=== PATIENT | male | born 1935 | race Caucasian/White ===

== ENCOUNTER 2018-04-26 08:39 | Day surgery (SDC) | payer OTHER ==
[2018-04-26] MEDS ORDERED: DIPRIVAN 20 ML VIAL IVP ONE (10:19)
[2018-04-26 16:12] VITALS: BP 132/56; TEMP 97.4
--- NOTE | 2018-04-27 12:56 | OP ---
INDICATIONS FOR PROCEDURE: 82-year-old gentleman presents for screening colon exam. He has a history of long redundant colon. He last had colonoscopy five years ago. He does have a remote history of colon polyps. MEDICATIONS: SEE ANESTHESIA NOTES. PROCEDURE: COLONOSCOPY. REPORT: The risks, benefits, alternatives and limitations were discussed in detail with the patient. Informed consent was obtained. After adequate sedation was achieved, a digital rectal exam revealed good tone, no masses. The colonoscope was introduced into the rectum and advanced under direct visual guidance to the cecum. The cecum was identified by the appendiceal orifice and IC valve. He has a long redundant colon requiring external pressure to reach the cecum. On advancing the scope, I encountered multiple puddles of liquid and semi solid stool. I washed and suctioned this off as best I could while I advanced the scope. I then withdrew the scope in a circumferential manner examining the mucosa quite carefully. I looked on the proximal and distal side of folds and flexures as best as possible. I was able to retroflex the scope in the right colon and left colon to increase visualization. The exam was limited secondary to the suboptimal prep. Large mass lesions would have been seen but polyps could have been obscured in different areas. I noted no abnormalities other than diverticulosis in the sigmoid colon. There were several large and small mouth diverticula present. The scope was retroflexed to look at the anal canal which was unremarkable. The patient tolerated the procedure well with stable vital signs and pulse oximetry throughout. IMPRESSION: 1. POOR PREP LIMITING THE EXTENT OF THIS EXAM. 2. LARGE MASS LESIONS HAVE BEEN EXCLUDED. 3. LONG REDUNDANT COLON. RECOMMENDATIONS: 1. Given his advanced age and health and his clinical status, I do not believe the benefit of reattempt at colonoscopy prep and colonoscopy would be beneficial in this gentleman. I suggest future colonoscopies on an as needed only basis. 2. High fiber diet. 3. Office visit as needed. ADDENDUM: I did talk to the patient and his family after the colonoscopy. We discussed the poor prep and how polyps could have been missed. We talked about pursuing another colonoscopy with additional prep; he declined to do so. He states he is happy to know that there are no large cancer lesions and he does not wish to pursue any additional colon exams. I think that is reasonable given his advanced age and health. CC: DR. JOSELYN APRK
== END 2018-04-26 11:55 | disposition home or self-care (01) ==
LOC: SURG 08:39
PROVIDERS: ATTEND Internal Medicine Gastroenterology
DX: Z86.010 Personal history of colon polyps (principal)
CPT/HCPCS: 00812; G0105

== ENCOUNTER 2020-06-01 18:11 | Inpatient (IN) ==
--- NOTE | 2020-06-01 18:33 | ED.PDOC ---
General <CRESENCIO LOPEZ DO - Last Filed: 06/01/20 19:30> ED Provider: Dr. CRESENCIO LOPEZ Chief Complaint: Respiratory Complaint Stated Complaint: Short of breath; recently tested pos for Covid. Denies hx COPD. State was informed by his pcp Dr Hopkins to come to ER if O2 stat dropped to 92 % Denies Fever or night sweats. Time Seen by Physician: 18:20 Mode of Arrival: Walk-In Information Source: Patient Exam Limitations: No limitations Primary Care Provider: DEDE HOPKINS Nursing and Triage Documentation Reviewed and Agree: Yes Does patient meet sepsis criteria?: No System Inflammatory Response Syndrome: Not Applicable Sepsis Protocol: For patient's 13 years and over: Temp is 96.8 and below OR 101 and greater Pulse >90 BPM Resp >20/minute Acutely Altered Mental Status Are patient's symptoms suggestive of a new infection, such as: -Pneumonia -Skin, Soft Tissue -Endocarditis -UTI -Bone, Joint Infection -Implantable Device -Acute Abdominal Infection -Wound Infection -Meningitis -Blood Stream Catheter Infection -Unknown <KYAW HUTCHINS - Last Filed: 06/01/20 22:01> Stated Complaint: sent in by PMD due to low home PO with recent dx covid Time Seen by Physician: 18:30 Mode of Arrival: Walk-In Information Source: Patient Exam Limitations: No limitations Primary Care Provider: Sandeep Referred to ED by: PCP Nursing and Triage Documentation Reviewed and Agree: Yes Does patient meet sepsis criteria?: No System Inflammatory Response Syndrome: Not Applicable Respiratory Complaint Exam <CRESENCIO LOPEZ DO - Last Filed: 06/01/20 19:30> Respiratory Complaint/Exam Onset/Duration: today Symptoms Are: Still present (no visibly dyspneic) Timing: Intermittent Initial Severity: Mild Current Severity: Mild Location: Chest Character: Reports Dry cough Aggravating: Reports Exertion Alleviating: Reports None Associated Signs and Symptoms: Reports Dyspnea Related History: Denies Similar episode Related Surgical History: Reports None Pulmonary Embolism Risk Factors: None Cardiac Risk Factors: Reports None Pseudomonas Risk Factors: Reports None Status Asthmaticus Risk Factors: Reports None Home Oxygen Use: No Recent Stress Test: No Recent Echo/LV Function: No Current Antibiotic Use: No Current Asthma Medication Use: No Respiratory Distress: None Inadequate Respiratory Effort: No Dysphagia Present: No Stridor Present: No JVD Present: No Retractions: Not Present Diminished Breath Sounds: No Sinus Tenderness: None Grunting Respirations: No Kussmaul Respirations: No Differential Diagnoses: Pneumonia and Other (COVID) Review of Systems <CRESENCIO LOPEZ DO - Last Filed: 06/01/20 19:30> Review Of Systems Constitutional: Reports Weakness Eyes: Reports No symptoms Ears, Nose, Mouth, Throat: Reports No symptoms Respiratory: Reports No symptoms Cardiac: Reports No symptoms GI: Reports No symptoms : Reports No symptoms Musculoskeletal: Reports No symptoms Skin: Reports No symptoms Neurological: Reports No symptoms Endocrine: Reports No symptoms Hematologic/Lymphatic: Reports No symptoms All Other Systems: Reviewed and Negative <KYAW HUTCHINS - Last Filed: 06/01/20 22:01> Review Of Systems Constitutional: Reports Chills (intermittant not new per pt ) Eyes: Reports No symptoms Ears, Nose, Mouth, Throat: Reports No symptoms (very [place], right ear best to use ) Respiratory: Reports No symptoms Cardiac: Reports Chest pain (occasional fleeting CP not new no radiation , nausea , dypsnea) GI: Reports No symptoms : Reports No symptoms Musculoskeletal: Reports Other (intermittantmuscle cramps not new ) Skin: Reports No symptoms Neurological: Reports No symptoms Endocrine: Reports No symptoms Hematologic/Lymphatic: Reports No symptoms All Other Systems: Reviewed and Negative Physical Exam <CRESENCIO LOPEZ DO - Last Filed: 06/01/20 19:30> Physical Exam Appearance: Reports Well-appearing and No pain distress Ill-appearing: Mild Pain Distress: None Eyes: Reports GER[place]IA, EOMI, Conjunctiva clear, Right pupil size (Equal) and Left pupil size ENT: Reports Ears normal, Nose normal and Oropharynx normal Neck: Supple Respiratory: Reports Airway patent, Breath sounds clear and Breath sounds diminished Cardiovascular: Reports RRR GI/: Reports Soft, Nontender, No masses, Bowel sounds normal and No Organomegaly Musculoskeletal: Reports Normal strength Skin: Reports Warm Neurological: Reports Sensation intact, Motor intact, Reflexes intact, Cranial nerves intact, Alert and Oriented Psychiatric: Reports Affect appropriate and Anxious <KYAW HUTCHINS - Last Filed: 06/01/20 22:01> Physical Exam Appearance: Reports Well-appearing Ill-appearing: Mild Pain Distress: None Eyes: Reports [place], EOMI and Conjunctiva clear ENT: Reports Ears normal and Nose normal Neck: Supple Respiratory: Reports Airway patent and Breath sounds equal Cardiovascular: Reports RRR and Pulses normal GI/: Reports Nontender Musculoskeletal: Reports Normal strength Skin: Reports Warm and Dry Neurological: Reports Sensation intact, Motor intact, Alert and Oriented Psychiatric: Reports Affect appropriate <KYAW HUTCHINS - Last Filed: 06/01/20 22:01> Radiology Interpretation Radiology Interpretation By: Radiologist Radiology Results: Positive Exam Interpreted: CXR Xray Comments: suggestive of covid <KYAW HUTCHINS - Last Filed: 06/01/20 22:01> Re-Evaluation Time of Re-Evaluation: 20:45 Status: Unchanged Vital Signs Stable: Yes Appearance: NAD Additional Comments: with RN present pt declines full code status - does not want resusitation if he develops cardiopulmonary arrest Physician Notification <CRESENCIO LOPEZ DO - Last Filed: 06/01/20 19:30> Case Discussed Physician Notified: Dr Hopkins- Advised of pts condition; Advises if needs admission -transfer Time of Notification: 18:44 Physician Notified: Dr Hutchins- accepted in transfer of care Time of Notification: 19:15 <KYAW HUTCHINS - Last Filed: 06/01/20 22:01> Case Discussed Admit To: SCU Comments: discussed with Dr Hopkins - orders received and written 2044 <KYAW HUTCHINS - Last Filed: 06/01/20 22:01> Critical Care Note Total Critical Care Time (mins): 20 Comments: review current literature / discuss with PMD / H&P / discuss code status / admit orders / Covid meds Course <CRESENCIO LOPEZ DO - Last Filed: 06/01/20 19:30> Course Hematology/Chemistry: 06/01/20 19:00 06/01/20 19:00 Orders, Labs, Meds: Lab Review 06/01/20 06/01/20 06/01/20 18:33 19:00 19:00 WBC 3.94 L RBC 4.73 Hgb 14.4 Hct 41.7 L MCV 88.2 MCH 30.4 MCHC 34.5 RDW Coeff of Анна 12.1 Plt Count 112 L Immature Gran % (Auto) 0.3 Neut % (Auto) 67.9 Lymph % (Auto) 18.8 [place] % (Auto) 12.4 H Eos % (Auto) 0.3 Baso % (Auto) 0.3 Neut # (Auto) 2.7 Lymph # (Auto) 0.7 [place] # (Auto) 0.5 Eos # (Auto) 0.0 Baso # (Auto) 0.0 Immature Gran # (Auto) 0.0 PT INR APTT Puncture Site Rr O2 Saturation 88.8 L ABG pH 7.51 H* ABG pCO2 35.0 ABG pO2 50.0 L* ABG HCO3 27.9 H ABG Total CO2 29.0 H ABG Base Excess 4.9 H Evan Test + FiO2 % 21.0 Sodium 131.2 L Potassium 3.68 Chloride 95.8 L Carbon Dioxide 27.8 Anion Gap 11.28 BUN 18.3 Creatinine 0.95 Estimated GFR (MDRD) 76.00 BUN/Creatinine Ratio 19.26 Glucose 139.1 H Lactic Acid Calcium 8.11 L Magnesium 2.26 Total Bilirubin 0.71 AST 58.9 ALT 26.1 Alkaline Phosphatase 88.5 Total Protein 6.94 Albumin 3.68 Globulin 3.26 Albumin/Globulin Ratio 1.12 Procalcitonin 06/01/20 06/01/20 06/01/20 19:00 19:00 19:00 WBC RBC Hgb Hct MCV MCH MCHC RDW Coeff of Анна Plt Count Immature Gran % (Auto) Neut % (Auto) Lymph % (Auto) [place] % (Auto) Eos % (Auto) Baso % (Auto) Neut # (Auto) Lymph # (Auto) [place] # (Auto) Eos # (Auto) Baso # (Auto) Immature Gran # (Auto) PT 9.6 INR 0.98 APTT 39.8 Puncture Site O2 Saturation ABG pH ABG pCO2 ABG pO2 ABG HCO3 ABG Total CO2 ABG Base Excess Evan Test FiO2 % Sodium Potassium Chloride Carbon Dioxide Anion Gap BUN Creatinine Estimated GFR (MDRD) BUN/Creatinine Ratio Glucose Lactic Acid 1.25 Calcium Magnesium Total Bilirubin AST ALT Alkaline Phosphatase Total Protein Albumin Globulin Albumin/Globulin Ratio Procalcitonin < 0.05 Orders Category Date Time Status ABG DRAW REQUEST Stat CARDIO 06/01/20 18:33 Completed METERED DOSE INHALATION Routine CARDIO 06/01/20 18:37 Completed ABG Stat LAB 06/01/20 18:33 Completed BLOOD CULTURE (ED ONLY) Stat LAB 06/01/20 19:00 Received CBC W/ AUTO DIFF Stat LAB 06/01/20 19:00 Completed CMP [COMPREHENSIVE METABOLIC PANEL] Stat LAB 06/01/20 19:00 Completed LACTIC ACID Stat LAB 06/01/20 19:00 Completed MAGNESIUM Stat LAB 06/01/20 19:00 Completed PARTIAL THROMBOPLASTIN TIME Stat LAB 06/01/20 19:00 Completed PROCALCITONIN Stat LAB 06/01/20 19:00 Completed PT WITH INR Stat LAB 06/01/20 19:00 Completed SPUTUM CULTURE Stat LAB 06/01/20 18:37 Uncollected Albuterol Inhaler(with Spacer) [Ventolin Hfa (Per Puff- MEDS 06/01/20 18:37 Discontinued with Spacer)] 2 puff IH ONCE STA CHEST, 1V AP ONLY Stat RADS 06/01/20 18:33 Completed Medications Generic Name Dose Route Start Last Admin Trade Name Freq PRN Reason Stop Dose Admin Dexamethasone Sodium Phosphate 6 mg 06/01/20 21:30 Dexamethasone Sod Phos 10 Mg/Ml Inj IVP DAILY [facility] Doxycycline Hyclate 100 mg 06/01/20 21:30 Doxycycline Hyclate 100 Mg Capsule PO 06/04/20 21:29 Q12HR [facility] Enoxaparin Sodium 40 mg 06/01/20 21:30 Enoxaparin Sodium 40 Mg/0.4 Ml Syr SUBCUT DAILY [facility] REMDESIVIR SOLUTION 200 mg/ 250 mls @ 125 mls/hr 06/01/20 21:12 Sodium Chloride IV 06/01/20 23:11 ONCE ONE CEFTRIAXONE/D5W 1 GM PREMIX 1 gm in 50 mls @ 75 mls/hr 06/01/20 21:12 Rocephin 1 Gm/50 Ml D5w IV 06/01/20 21:51 ONCE STA Ipratropium Union 2 puff 06/02/20 00:00 Ipratropium [place] 12.9 Gm Hfa Inhaler Per Puff With Spacer IH RTQ6H ZOHAIB Discontinued Medications Generic Name Dose Route Start Last Admin Trade Name Freq PRN Reason Stop Dose Admin Albuterol Sulfate 2 puff 06/01/20 18:37 06/01/20 18:57 Albuterol Sulfate (Ventolin Hfa) 18 Gm 1 Puff With Spacer IH 06/01/20 18:38 2 puff ONCE STA Administration Vital Signs: Temp Pulse Resp BP Pulse Ox 06/01/20 18:26 99.3 F 80 20 124/60 90 L <KYAW HUTCHINS - Last Filed: 06/01/20 22:01> Course Orders, Labs, Meds: Lab Review 06/01/20 06/01/20 06/01/20 18:33 19:00 19:00 WBC 3.94 L RBC 4.73 Hgb 14.4 Hct 41.7 L MCV 88.2 MCH 30.4 MCHC 34.5 RDW Coeff of Анна 12.1 Plt Count 112 L Immature Gran % (Auto) 0.3 Neut % (Auto) 67.9 Lymph % (Auto) 18.8 [place] % (Auto) 12.4 H Eos % (Auto) 0.3 Baso % (Auto) 0.3 Neut # (Auto) 2.7 Lymph # (Auto) 0.7 [place] # (Auto) 0.5 Eos # (Auto) 0.0 Baso # (Auto) 0.0 Immature Gran # (Auto) 0.0 PT INR APTT Puncture Site Rr O2 Saturation 88.8 L ABG pH 7.51 H* ABG pCO2 35.0 ABG pO2 50.0 L* ABG HCO3 27.9 H ABG Total CO2 29.0 H ABG Base Excess 4.9 H Evan Test + FiO2 % 21.0 Sodium 131.2 L Potassium 3.68 Chloride 95.8 L Carbon Dioxide 27.8 Anion Gap 11.28 BUN 18.3 Creatinine 0.95 Estimated GFR (MDRD) 76.00 BUN/Creatinine Ratio 19.26 Glucose 139.1 H Lactic Acid Calcium 8.11 L Magnesium 2.26 Total Bilirubin 0.71 AST 58.9 ALT 26.1 Alkaline Phosphatase 88.5 Total Protein 6.94 Albumin 3.68 Globulin 3.26 Albumin/Globulin Ratio 1.12 Procalcitonin 06/01/20 06/01/20 06/01/20 19:00 19:00 19:00 WBC RBC Hgb Hct MCV MCH MCHC RDW Coeff of Анна Plt Count Immature Gran % (Auto) Neut % (Auto) Lymph % (Auto) [place] % (Auto) Eos % (Auto) Baso % (Auto) Neut # (Auto) Lymph # (Auto) [place] # (Auto) Eos # (Auto) Baso # (Auto) Immature Gran # (Auto) PT 9.6 INR 0.98 APTT 39.8 Puncture Site O2 Saturation ABG pH ABG pCO2 ABG pO2 ABG HCO3 ABG Total CO2 ABG Base Excess Evan Test FiO2 % Sodium Potassium Chloride Carbon Dioxide Anion Gap BUN Creatinine Estimated GFR (MDRD) BUN/Creatinine Ratio Glucose Lactic Acid 1.25 Calcium Magnesium Total Bilirubin AST ALT Alkaline Phosphatase Total Protein Albumin Globulin Albumin/Globulin Ratio Procalcitonin < 0.05 Orders Category Date Time Status ABG DRAW REQUEST Stat CARDIO 06/01/20 18:33 Completed METERED DOSE INHALATION Routine CARDIO 06/01/20 18:37 Completed ABG Stat LAB 06/01/20 18:33 Completed BLOOD CULTURE (ED ONLY) Stat LAB 06/01/20 19:00 Received CBC W/ AUTO DIFF Stat LAB 06/01/20 19:00 Completed CMP [COMPREHENSIVE METABOLIC PANEL] Stat LAB 06/01/20 19:00 Completed LACTIC ACID Stat LAB 06/01/20 19:00 Completed MAGNESIUM Stat LAB 06/01/20 19:00 Completed PARTIAL THROMBOPLASTIN TIME Stat LAB 06/01/20 19:00 Completed PROCALCITONIN Stat LAB 06/01/20 19:00 Completed PT WITH INR Stat LAB 06/01/20 19:00 Completed SPUTUM CULTURE Stat LAB 06/01/20 18:37 Uncollected Albuterol Inhaler(with Spacer) [Ventolin Hfa (Per Puff- MEDS 06/01/20 18:37 Discontinued with Spacer)] 2 puff IH ONCE STA CHEST, 1V AP ONLY Stat RADS 06/01/20 18:33 Completed Medications Generic Name Dose Route Start Last Admin Trade Name Freq PRN Reason Stop Dose Admin Dexamethasone Sodium Phosphate 6 mg 06/01/20 21:30 Dexamethasone Sod Phos 10 Mg/Ml Inj IVP DAILY [facility] Doxycycline Hyclate 100 mg 06/01/20 21:30 Doxycycline Hyclate 100 Mg Capsule PO 06/04/20 21:29 Q12HR [facility] Enoxaparin Sodium 40 mg 06/01/20 21:30 Enoxaparin Sodium 40 Mg/0.4 Ml Syr SUBCUT DAILY ZOHAIB REMDESIVIR SOLUTION 200 mg/ 250 mls @ 125 mls/hr 06/01/20 21:12 Sodium Chloride IV 06/01/20 23:11 ONCE ONE CEFTRIAXONE/D5W 1 GM PREMIX 1 gm in 50 mls @ 75 mls/hr 06/01/20 21:12 Rocephin 1 Gm/50 Ml D5w IV 06/01/20 21:51 ONCE STA Ipratropium Union 2 puff 06/02/20 00:00 Ipratropium [place] 12.9 Gm Hfa Inhaler Per Puff With Spacer IH RTQ6H ZOHAIB Discontinued Medications Generic Name Dose Route Start Last Admin Trade Name Freq PRN Reason Stop Dose Admin Albuterol Sulfate 2 puff 06/01/20 18:37 06/01/20 18:57 Albuterol Sulfate (Ventolin Hfa) 18 Gm 1 Puff With Spacer IH 06/01/20 18:38 2 puff ONCE STA Administration Vital Signs: Temp Pulse Resp BP Pulse Ox 06/01/20 18:26 99.3 F 80 20 124/60 90 L Discharge Plan Discharge Patient Disposition: ADMITTED INPATIENT Discharge Problem: Pneumonia due to 2019 novel coronavirus ED Provider: KYAW HUTCHINS Condition: Stable <CRESENCIO LOPEZ DO - Last Filed: 06/01/20 19:30> Physician Progress Note: [] <KYAW HUTCHINS - Last Filed: 06/01/20 22:01> Physician Progress Note: patient understands plan and agrees with admission for oxygen supplementation, IV Meds ,
[2020-06-01] MEDS ORDERED: VENTOLIN HFA (PER PUFF-WITH SPACER) IH STA (18:37)
[2020-06-01 18:54] LABS: ABG PH 7.51 (7.35-7.45)
[2020-06-01 18:55] LABS: ABG BASE EXCESS 4.9 (-2.0-2.0); ABG HCO3 27.9 (22.0-26.0); ABG OXYGEN SATURATION 88.8 % (95-100)
[2020-06-01 19:15] LABS: BASOPHILS % (AUTO) 0.3 % (0.0-3.0); EOSINOPHILS % (AUTO) 0.3 % (0.0-7.0); HEMATOCRIT 41.7 % (42.0-52.0); HEMOGLOBIN 14.4 g/dl (14.0-18.0); IMMATURE GRANULOCYTE % (AUTO) 0.3 % (0.0-5.0); LYMPHOCYTES # (AUTO) 0.7 K/uL (0.60-3.4); LYMPHOCYTES % (AUTO) 18.8 (10.0-50.0); MEAN CORPUSCULAR HEMOGLOBIN 30.4 pg (27.0-31.0); MEAN CORPUSCULAR HGB CONC 34.5 (31.8-35.4); MEAN CORPUSCULAR VOLUME 88.2 fl (80.0-94.0); MONOCYTES # (AUTO) 0.5 K/uL (0.4-2.0); MONOCYTES % (AUTO) 12.4 (0-10); NEUTROPHILS # (AUTO) 2.7 K/ul (2.0-6.9); NEUTROPHILS % (AUTO) 67.9 % (42.2-75.2); PLATELET COUNT 112 10^3/uL (140-440); RDW COEFFICIENT OF VARIATION 12.1 % (11.6-14.8); RED BLOOD COUNT 4.73 10^6/ul (4.70-6.10); WHITE BLOOD COUNT 3.94 K/ul (4.2-10.2)
[2020-06-01 19:26] LABS: ALANINE AMINOTRANSFERASE 26.1 U/L (0-50); ALBUMIN 3.68 g/dL (3.5-5.0); ALKALINE PHOSPHATASE 88.5 U/L (56-119); ASPARTATE AMINO TRANSFERASE 58.9 U/L (17-59); BILIRUBIN,TOTAL 0.71 mg/dL (0.2-1.3); BLOOD UREA NITROGEN 18.3 mg/dL (9-20); CALCIUM 8.11 mg/dL (8.4-10.2); CARBON DIOXIDE 27.8 mmol/L (22-30.0); CHLORIDE 95.8 mmol/L (98-107); CREATININE 0.95 mg/dL (0.60-1.10); GLUCOSE 139.1 mg/dL (74-106); MAGNESIUM 2.26 mg/dL (1.6-2.3); POTASSIUM 3.68 mmol/L (3.5-5.1); SODIUM 131.2 mmol/L (134.5-145); TOTAL PROTEIN 6.94 g/dL (6.3-8.2)
--- NOTE | 2020-06-01 19:30 | DI ---
EXAM: One-view chest HISTORY: Shortness of breath, COVID-19 TECHNIQUE: Single frontal view the chest was obtained. FINDINGS: The heart is normal size. Ground-glass opacities are suspected in the right perihilar hiral g and within the left perihilar lung. The pulmonary vasculature appears normal. There is no consoli dation. The costophrenic angles are sharp. IMPRESSION: Bilateral ground-glass opacities are suspected compatible with the patients history of C OVID-19 infection.
[2020-06-01 19:32] LABS: PARTIAL THROMBOPLASTIN TIME 39.8 SEC (23.9-40.0); PROTHROMBIN TIME 9.6 SEC (9.3-11.0)
[2020-06-01] MEDS ORDERED: ROCEPHIN 1 GM/50 ML D5W 1 GM/50 ML BAG IV STA (21:12)
[2020-06-01] MEDS ORDERED: REMDESIVIR 200 MG in SODIUM CHLORIDE 210 ML IV ONE (21:12)
[2020-06-01] MEDS ORDERED: INDOCIN PO PRN (22:13)
[2020-06-01 22:20] VITALS: BMI 25.1
[2020-06-01] MEDS: DECADRON IVP SCH (23:08)
[2020-06-01] MEDS: SYMBICORT 160-4.5 MCG INHALER IH SCH (23:08)
[2020-06-01] MEDS: DOXYCYCLINE HYCLATE PO SCH (23:08)
[2020-06-01] MEDS: LOVENOX SUBCUT SCH (23:09)
[2020-06-01] MEDS: ATROVENT HFA INHALER (PER PUFF-WITH SPACER) IH SCH (23:11)
[2020-06-01] MEDS: VENTOLIN HFA (PER PUFF-WITH SPACER) IH SCH (23:11)
[2020-06-02] MEDS ORDERED: VENTOLIN HFA (PER PUFF-WITH SPACER) IH SCH
[2020-06-02] MEDS: VENTOLIN HFA (PER PUFF-WITH SPACER) IH SCH ×4 (04:55→23:23)
[2020-06-02] MEDS: ATROVENT HFA INHALER (PER PUFF-WITH SPACER) IH SCH ×4 (04:55→23:23)
[2020-06-02 05:04] LABS: HEMATOCRIT 43.1 % (42.0-52.0); HEMOGLOBIN 14.9 g/dl (14.0-18.0); MEAN CORPUSCULAR HEMOGLOBIN 30.8 pg (27.0-31.0); MEAN CORPUSCULAR HGB CONC 34.6 (31.8-35.4); MEAN CORPUSCULAR VOLUME 89.2 fl (80.0-94.0); PLATELET COUNT 109 10^3/uL (140-440); RDW COEFFICIENT OF VARIATION 12.3 % (11.6-14.8); RED BLOOD COUNT 4.83 10^6/ul (4.70-6.10); WHITE BLOOD COUNT 4.06 K/ul (4.2-10.2)
[2020-06-02 05:17] LABS: ANISOCYTOSIS NOT PRESENT (NOT PRESENT)
[2020-06-02 05:23] LABS: ALANINE AMINOTRANSFERASE 25.7 U/L (0-50); ALBUMIN 3.69 g/dL (3.5-5.0); ALKALINE PHOSPHATASE 88.9 U/L (56-119); ASPARTATE AMINO TRANSFERASE 53.1 U/L (17-59); BILIRUBIN,TOTAL 0.63 mg/dL (0.2-1.3); BLOOD UREA NITROGEN 15.1 mg/dL (9-20); CALCIUM 8.27 mg/dL (8.4-10.2); CARBON DIOXIDE 31.1 mmol/L (22-30.0); CHLORIDE 96.5 mmol/L (98-107); CREATININE 0.99 mg/dL (0.60-1.10); GLUCOSE 158.3 mg/dL (74-106); POTASSIUM 3.88 mmol/L (3.5-5.1); TOTAL PROTEIN 7.02 g/dL (6.3-8.2)
[2020-06-02] MEDS ORDERED: PROAIR HFA (SINGLE PATIENT USE) IH SCH (06:00)
[2020-06-02] MEDS: PROSCAR PO SCH (08:32)
[2020-06-02] MEDS: DOXYCYCLINE HYCLATE PO SCH ×2 (08:32→20:34)
[2020-06-02] MEDS: LOVENOX SUBCUT SCH (08:33)
[2020-06-02] MEDS: DECADRON IVP SCH (08:34)
[2020-06-02] MEDS: SYMBICORT 160-4.5 MCG INHALER IH SCH ×2 (08:38→20:35)
[2020-06-02] MEDS ORDERED: DIPHENHYDRAMINE ACETAMINOPHEN PO SCH (09:00)
[2020-06-02] MEDS ORDERED: REMDESIVIR 200 MG in SODIUM CHLORIDE 210 ML IV ONE (09:00)
[2020-06-02] MEDS: VITAMIN D PO SCH (13:48)
[2020-06-02] MEDS: PRAVACHOL PO SCH (20:33)
[2020-06-02] MEDS: BENADRYL PO SCH (20:34)
[2020-06-02] MEDS: TYLENOL PO SCH (20:34)
[2020-06-02] MEDS: ROCEPHIN 1 GM/50 ML D5W 1 GM/50 ML BAG IV SCH (20:34)
[2020-06-03] MEDS: ATROVENT HFA INHALER (PER PUFF-WITH SPACER) IH SCH ×4 (05:10→23:05)
[2020-06-03] MEDS: VENTOLIN HFA (PER PUFF-WITH SPACER) IH SCH ×4 (05:10→23:05)
[2020-06-03 06:15] LABS: BASOPHILS % (AUTO) 0.2 % (0.0-3.0); HEMATOCRIT 40.3 % (42.0-52.0); HEMOGLOBIN 13.8 g/dl (14.0-18.0); IMMATURE GRANULOCYTE % (AUTO) 0.4 % (0.0-5.0); LYMPHOCYTES # (AUTO) 0.9 K/uL (0.60-3.4); LYMPHOCYTES % (AUTO) 15.3 (10.0-50.0); MEAN CORPUSCULAR HEMOGLOBIN 30.7 pg (27.0-31.0); MEAN CORPUSCULAR HGB CONC 34.2 (31.8-35.4); MEAN CORPUSCULAR VOLUME 89.8 fl (80.0-94.0); MONOCYTES # (AUTO) 0.6 K/uL (0.4-2.0); MONOCYTES % (AUTO) 10.5 (0-10); NEUTROPHILS # (AUTO) 4.2 K/ul (2.0-6.9); NEUTROPHILS % (AUTO) 73.6 % (42.2-75.2); PLATELET COUNT 137 10^3/uL (140-440); RDW COEFFICIENT OF VARIATION 12.2 % (11.6-14.8); RED BLOOD COUNT 4.49 10^6/ul (4.70-6.10); WHITE BLOOD COUNT 5.63 K/ul (4.2-10.2)
[2020-06-03 06:24] LABS: PROTHROMBIN TIME 9.5 SEC (9.3-11.0)
[2020-06-03 06:25] LABS: ALANINE AMINOTRANSFERASE 23.6 U/L (0-50); ALBUMIN 3.31 g/dL (3.5-5.0); ALKALINE PHOSPHATASE 84.2 U/L (56-119); ASPARTATE AMINO TRANSFERASE 44.5 U/L (17-59); BILIRUBIN,TOTAL 0.44 mg/dL (0.2-1.3); BLOOD UREA NITROGEN 23.6 mg/dL (9-20); CALCIUM 8.67 mg/dL (8.4-10.2); CARBON DIOXIDE 28.7 mmol/L (22-30.0); CHLORIDE 102.4 mmol/L (98-107); CREATININE 0.92 mg/dL (0.60-1.10); GLUCOSE 123.9 mg/dL (74-106); POTASSIUM 3.98 mmol/L (3.5-5.1); SODIUM 137.4 mmol/L (134.5-145); TOTAL PROTEIN 6.45 g/dL (6.3-8.2)
--- NOTE | 2020-06-03 09:03 | PCM.PROG ---
Attending Provider: ATTENDING PROVIDER: Dr. DEDE ALVES This patient is seen with Luz Maria Solis, Nurse Practitioner. DATE OF SERVICE: 06/03/20 SUBJECTIVE: This 84 year old /WHITE M was hospitalized 06/01/20. The patient is resting comfortably. Sating low 90s with oxygen. Eating moderately well. Kidney functions are stable. resting comfortably. REVIEW OF SYSTEMS: CONSTITUTIONAL: No night sweats. No fatigue, malaise, lethargy. No fever or chills. Weakness. HEENT: Eyes: No visual changes. No eye pain. No eye discharge. ENT: No runny nose. No epistaxis. No sinus pain. No odynophagia. No congestion. RESPIRATORY: Cough, no congestion. No hemoptysis. Shortness of breath. CARDIOVASCULAR: No angina symptoms. No CHF symptoms. No atypical chest pain for CAD. No palpitations. No orthopnea.. GASTROINTESTINAL: No abdominal pain. No nausea or vomiting. No diarrhea or c onstipation. No hematemesis. No hematochezia. GENITOURINARY: No urgency. No frequency. No dysuria. No hematuria. No obstructive symptoms. No discharge. No pain. No significant abnormal bleeding. MUSCULOSKELETAL: No musculoskeletal pain; no joint swelling. NEUROLOGICAL: Awake, alert, oriented to time, place and person. No headache. No neck pain. No syncope. No seizures. No dizziness. PSYCHIATRIC: Not anxious. No depression. No suicidal thoughts. No homicidal thoughts. SKIN: No rash. No lesions. No wounds. ENDOCRINE: No unexplained weight loss. No weight gain. HEMATOLOGIC/LYMPHATIC: No anemia. No purpura. No petechiae. No prolonged or excessive bleeding. No palpable lymph nodes. PHYSICAL EXAMINATION: GENERAL: The patient is awake, alert and oriented, lying in bed in no distress. VITAL SIGNS: Temperature 98.1 F, Pulse 79, Respiratory Rate 20, BP 135/74, Pulse Ox 91% HEENT: Head normocephalic, atraumatic. Eyes: Extraocular muscles are intact. Pupils are equal, round and reactive to light and accommodation. Ears: No lesions. Nose appeared normal. Throat: No exudate or erythema. NECK: Supple. No JVD, no carotid bruit. No lymphadenopathy or thyromegaly. LUNGS: Diminished breath sounds. Clear to auscultation. Percussion note normal. Chest symmetrical. HEART: S1, S2, no S3. No murmurs. No cyanosis or clubbing. No ascites. Pulses: Dorsalis pedis and posterior tibial pulses +1 to +2 both sides. ABDOMEN: Soft. Non-tender. Bowel sounds active. No CVA tenderness. No mass felt. EXTREMITIES: No edema. Full range of motion of all extremities, equal. NEUROLOGIC: No focal deficit. Cranial nerves II through XII are grossly intact. No headache, no double vision or headache. SKIN: Not dry. Intact. Turgor-normal. LYMPHATIC: No palpable lymph nodes/no lymphedema. MUSCULOSKELETAL: Normal joints with no swelling. Muscle tone is normal. LAB REVIEW: 06/03/20 06:00 06/03/20 06:00 06/03/20 06:00: Sodium 137.4, Potassium 3.98, Chloride 102.4, Carbon Dioxide 28.7, Anion Gap 10.28, BUN 23.6 H, Creatinine 0.92, Estimated GFR (MDRD) 78.00, BUN/Creatinine Ratio 25.65, Glucose 123.9 H, Calcium 8.67, Total Bilirubin 0.44, AST 44.5, ALT 23.6, Alkaline Phosphatase 84.2, Total Protein 6.45, Albumin 3.31 L, Globulin 3.14, Albumin/Globulin Ratio 1.05 06/03/20 06:00: WBC 5.63, RBC 4.49 L, Hgb 13.8 L, Hct 40.3 L, MCV 89.8, MCH 30.7, MCHC 34.2, RDW Coeff of Анна 12.2, Plt Count 137 L, Immature Gran % (Auto) 0.4, Neut % (Auto) 73.6, Lymph % (Auto) 15.3, [place] % (Auto) 10.5 H, Eos % (Auto) 0.0, Baso % (Auto) 0.2, Neut # (Auto) 4.2, Lymph # (Auto) 0.9, [place] # (Auto) 0.6, Eos # (Auto) 0.0, Baso # (Auto) 0.0, Immature Gran # (Auto) 0.0 06/03/20 05:07: PT 9.5, INR 0.97 ASSESSMENT: Please see below. 1. Acute respiratory failure, improved 2. Bilateral pneumonia 3. COVID 19 4. Shortness of breath acute PLAN: 1. Continue IV antibiotics and steroids Plan and coordination of the patient's care discussed in the presence of Sole Ruffer and nurse. SCRIBED BY: Edilson GOMEZ scribed while in presence of service performed by Dr. Alves/Luz Maria Solis APRN on 06/03/20 ([id number])
[2020-06-03] MEDS: DECADRON IVP SCH (09:33)
[2020-06-03] MEDS: VITAMIN D PO SCH (09:55)
[2020-06-03] MEDS: LOVENOX SUBCUT SCH (09:55)
[2020-06-03] MEDS: PROSCAR PO SCH (09:59)
[2020-06-03] MEDS: ZINC-220 PO SCH (09:59)
[2020-06-03] MEDS: REMDESIVIR 100 MG in SODIUM CHLORIDE 230 ML IV SCH (09:59)
[2020-06-03] MEDS: DOXYCYCLINE HYCLATE PO SCH ×2 (10:00→21:30)
[2020-06-03] MEDS: SYMBICORT 160-4.5 MCG INHALER IH SCH ×2 (10:00→21:30)
--- NOTE | 2020-06-03 11:23 | PN ---
DATE OF SERVICE: 06/01/20 - ADMIT NOTE SUBJECTIVE: 84-year-old white male positive for Covid-19 came to the emergency room after I instructed him to check pulse oximetry and if oximetry is 90% or less to come to the emergency room. The patient's oximetry at home was 88% so his girlfriend decided to bring him to the emergency room. He had been having fever 101 at home and mild shortness of breath. Further checkup in the emergency room revealed that he had bilateral ground glass appearance with pneumonia. P02 was 50, pc02 35. The patient's oxygen saturation as 94 to 95%. Oxygen saturation in the Emergency Room was 89 to 90% on room air. He will be hospitalized for Covid-19 pneumonia. Continue oxygen, IV Remdesivir, Decadron, Rocephin and Doxycycline. Continue the rest of the medications. The patient's condition is stable now. According to the ER staff, nurse Dow, who is an RN as well as the ER doctor, the patient didn't want any CPR for cardiopulmonary arrest on his own he indicated to the ER nurse and also to the ER doctor. CONDITION: STABLE TIME SPENT: More than 30 minutes. Plan and coordination of the patient's care discussed in the presence of nurseAlice PARK
--- NOTE | 2020-06-03 11:30 | PN ---
DATE OF SERVICE: 06/02/20 SUBJECTIVE: 84-year-old white male hospitalized with Covid-19 pneumonia with acute respiratory failure. The patient says he is feeling a lot better, breathing better. REVIEW OF SYSTEMS: CONSTITUTIONAL: No night sweats. No fatigue, malaise, lethargy. No fever or chills. HEENT: Eyes: No visual changes. No eye pain. No eye discharge. ENT: No runny nose. No epistaxis. No sinus pain. No sore throat. No odynophagia. No congestion. RESPIRATORY: No cough, no congestion. No hemoptysis. No shortness of breath. CARDIOVASCULAR: No angina symptoms. No CHF symptoms. No atypical chest pain for CAD. No palpitations. No PND. No orthopnea. GASTROINTESTINAL: No abdominal pain. No nausea or vomiting. No diarrhea or constipation. No hematemesis. No hematochezia. GENITOURINARY: No urgency. No frequency. No dysuria. No hematuria. No obstructive symptoms. No discharge. No pain. No significant abnormal bleeding. MUSCULOSKELETAL: No musculoskeletal pain; no joint swelling. NEUROLOGICAL: No headache. No neck pain. No syncope. No seizures. No dizziness. PSYCHIATRIC: Not anxious. No depression. No suicidal thoughts. No homicidal thoughts. SKIN: No rash. No lesions. No wounds. ENDOCRINE: No unexplained weight loss. No weight gain. HEMATOLOGIC/LYMPHATIC: No anemia. No purpura. No petechiae. No prolonged or excessive bleeding. No palpable lymph nodes. PHYSICAL EXAMINATION: VITAL SIGNS: Temperature 98.2, pulse 76, respiratory rate 16, blood pressure 140/70, pulse ox 92% on 2L. HEENT: Head normocephalic, atraumatic. Eyes: Extraocular muscles are intact. Pupils are equal, round and reactive to light and accommodation. Ears: No lesions. Nose appeared normal. Throat: No exudate or erythema. NECK: Supple. No JVD, no carotid bruit. No lymphadenopathy or thyromegaly. LUNGS: Decreased breath sounds. Bilateral crepitations, dry. Percussion note normal. Chest symmetrical. HEART: S1, S2, no S3. No murmurs. No cyanosis or clubbing. No ascites. Pulses: Dorsalis pedis and posterior tibial pulses +1 to +2 bilaterally. ABDOMEN: Soft. Nontender. Bowel sounds active. No CVA tenderness. No mass felt. EXTREMITIES: No edema. Full range of motion of all extremities, equal. NEUROLOGIC: No focal deficit. Cranial nerves II through XII are grossly intact. No headache, no double vision or headache. SKIN: Not dry. Intact. Turgor - normal. LYMPHATIC: No palpable lymph nodes/no lymphedema. MUSCULOSKELETAL: Normal joints with no swelling. Muscle tone is normal. LABS: Hemoglobin 14, hematocrit 43, WBC 4,000, normal differential. Creatinine 0.9, BUN 15, potassium 3.8. ASSESSMENT: 1. Acute respiratory failure with Covid-19 pneumonia. 2. Chronic lung disease. 3. Gouty arthritis. 4. BPH. PLAN: 1. Give Remdesivir 100 daily for four days. 200 mg was given yesterday. 100 mg will be given today. 2. Continue Dexamethasone. 3. Will give Pravachol 40 mg p.o. daily along with Vitamin D3, Symbicort two puffs q.a.m., Pepcid 20 mg twice a day. 4. Continue Rocephin and Doxycycline. 5. Will start Zinc. 6. Monitor oximetry. CONDITION: Stable, improving. The patient was Covid positive. TIME SPENT: More than 30 minutes. Plan and coordination of the patient's care discussed in the presence of nurse. XAVIER
[2020-06-03] MEDS: PEPCID PO SCH ×2 (16:17→16:19)
[2020-06-03] MEDS: ROCEPHIN 1 GM/50 ML D5W 1 GM/50 ML BAG IV SCH (21:29)
[2020-06-03] MEDS: BENADRYL PO SCH (21:30)
[2020-06-03] MEDS: TYLENOL PO SCH (21:30)
[2020-06-03] MEDS: PRAVACHOL PO SCH (21:30)
[2020-06-04] MEDS: VENTOLIN HFA (PER PUFF-WITH SPACER) IH SCH ×4 (04:28→23:10)
[2020-06-04] MEDS: ATROVENT HFA INHALER (PER PUFF-WITH SPACER) IH SCH ×4 (04:28→23:10)
[2020-06-04] MEDS: PEPCID PO SCH ×2 (05:30→17:34)
[2020-06-04 05:57] LABS: PROTHROMBIN TIME 10.1 SEC (9.3-11.0)
[2020-06-04 05:59] LABS: ALANINE AMINOTRANSFERASE 35.6 U/L (0-50); ALBUMIN 3.43 g/dL (3.5-5.0); ASPARTATE AMINO TRANSFERASE 57.3 U/L (17-59); BILIRUBIN,TOTAL 0.51 mg/dL (0.2-1.3); BLOOD UREA NITROGEN 21.9 mg/dL (9-20); CALCIUM 8.75 mg/dL (8.4-10.2); CARBON DIOXIDE 26.9 mmol/L (22-30.0); CHLORIDE 102.9 mmol/L (98-107); CREATININE 0.91 mg/dL (0.60-1.10); GLUCOSE 119.5 mg/dL (74-106); POTASSIUM 4.11 mmol/L (3.5-5.1); SODIUM 136.7 mmol/L (134.5-145); TOTAL PROTEIN 6.66 g/dL (6.3-8.2)
[2020-06-04 07:25] LABS: HEMATOCRIT 42.6 % (42.0-52.0); HEMOGLOBIN 14.7 g/dl (14.0-18.0); IMMATURE GRANULOCYTE % (AUTO) 0.5 % (0.0-5.0); LYMPHOCYTES # (AUTO) 0.8 K/uL (0.60-3.4); LYMPHOCYTES % (AUTO) 13.9 (10.0-50.0); MEAN CORPUSCULAR HEMOGLOBIN 30.9 pg (27.0-31.0); MEAN CORPUSCULAR HGB CONC 34.5 (31.8-35.4); MEAN CORPUSCULAR VOLUME 89.5 fl (80.0-94.0); MONOCYTES # (AUTO) 0.6 K/uL (0.4-2.0); MONOCYTES % (AUTO) 10.8 (0-10); NEUTROPHILS # (AUTO) 4.4 K/ul (2.0-6.9); NEUTROPHILS % (AUTO) 74.8 % (42.2-75.2); PLATELET COUNT 177 10^3/uL (140-440); RDW COEFFICIENT OF VARIATION 12.3 % (11.6-14.8); RED BLOOD COUNT 4.76 10^6/ul (4.70-6.10)
[2020-06-04] MEDS: ZINC-220 PO SCH (08:52)
[2020-06-04] MEDS: DOXYCYCLINE HYCLATE PO SCH ×2 (08:52→21:45)
[2020-06-04] MEDS: REMDESIVIR 100 MG in SODIUM CHLORIDE 230 ML IV SCH (08:52)
[2020-06-04] MEDS: PROSCAR PO SCH (08:53)
[2020-06-04] MEDS: VITAMIN D PO SCH (08:53)
[2020-06-04] MEDS: SYMBICORT 160-4.5 MCG INHALER IH SCH ×2 (08:54→22:15)
[2020-06-04] MEDS: LOVENOX SUBCUT SCH (08:54)
--- NOTE | 2020-06-04 09:05 | PCM.PROG ---
Attending Provider: ATTENDING PROVIDER: Dr. DEDE ALVES This patient is seen with Luz Maria Solis, Nurse Practitioner. DATE OF SERVICE: 06/04/20 SUBJECTIVE: This 84 year old /WHITE M was hospitalized 06/01/20. The patient is resting comfortably. Cough and shortness of breath have improved. He is up and alert with three liters of O2. He has been eating well. REVIEW OF SYSTEMS: CONSTITUTIONAL: No night sweats. No fatigue, malaise, lethargy. No fever or chills. Weakness. HEENT: Eyes: No visual changes. No eye pain. No eye discharge. ENT: No runny nose. No epistaxis. No sinus pain. No odynophagia. No congestion. RESPIRATORY: Cough, no congestion. No hemoptysis. Shortness of breath. CARDIOVASCULAR: No angina symptoms. No CHF symptoms. No atypical chest pain for CAD. No palpitations. No orthopnea.. GASTROINTESTINAL: No abdominal pain. No nausea or vomiting. No diarrhea or constipation. No hematemesis. No hematochezia. GENITOURINARY: No urgency. No frequency. No dysuria. No hematuria. No obstructive symptoms. No discharge. No pain. No significant abnormal bleeding. MUSCULOSKELETAL: No musculoskeletal pain; no joint swelling. NEUROLOGICAL: Awake, alert, oriented to time, place and person. No headache. No neck pain. No syncope. No seizures. No dizziness. PSYCHIATRIC: Not anxious. No depression. No suicidal thoughts. No homicidal thoughts. SKIN: No rash. No lesions. No wounds. ENDOCRINE: No unexplained weight loss. No weight gain. HEMATOLOGIC/LYMPHATIC: No anemia. No purpura. No petechiae. No prolonged or excessive bleeding. No palpable lymph nodes. PHYSICAL EXAMINATION: GENERAL: The patient is awake, alert and oriented times three, lying in bed in no distress. VITAL SIGNS: Temperature 97.5 F, Pulse 69, Respiratory Rate 18, BP 147/72, Pulse Ox 90% HEENT: Head normocephalic, atraumatic. Eyes: Extraocular muscles are intact. Pupils are equal, round and reactive to light and accommodation. Ears: No lesions. Nose appeared normal. Throat: No exudate or erythema. NECK: Supple. No JVD, no carotid bruit. No lymphadenopathy or thyromegaly. LUNGS: Diminished breath sounds. Clear to auscultation. Percussion note normal. Chest symmetrical. HEART: S1, S2, no S3. No murmurs. No cyanosis or clubbing. No ascites. Pulses: Dorsalis pedis and posterior tibial pulses +1 to +2 both sides. ABDOMEN: Soft. Non-tender. Bowel sounds active. No CVA tenderness. No mass felt. EXTREMITIES: No edema. Full range of motion of all extremities, equal. NEUROLOGIC: No focal deficit. Cranial nerves II through XII are grossly intact. No headache, no double vision or headache. SKIN: Not dry. Intact. Turgor-normal. LYMPHATIC: No palpable lymph nodes/no lymphedema. MUSCULOSKELETAL: Normal joints with no swelling. Muscle tone is normal. LAB REVIEW: 06/04/20 05:36 06/04/20 05:36 06/04/20 05:36: WBC 5.90, RBC 4.76, Hgb 14.7, Hct 42.6, MCV 89.5, MCH 30.9, MCHC 34.5, RDW Coeff of Анна 12.3, Plt Count 177, Immature Gran % (Auto) 0.5, Neut % (Auto) 74.8, Lymph % (Auto) 13.9, [place] % (Auto) 10.8 H, Eos % (Auto) 0.0, Baso % (Auto) 0.0, Neut # (Auto) 4.4, Lymph # (Auto) 0.8, [place] # (Auto) 0.6, Eos # (Auto) 0.0, Baso # (Auto) 0.0, Immature Gran # (Auto) 0.0 06/04/20 05:36: Sodium 136.7, Potassium 4.11, Chloride 102.9, Carbon Dioxide 26.9, Anion Gap 11.01, BUN 21.9 H, Creatinine 0.91, Estimated GFR (MDRD) 79.00, BUN/Creatinine Ratio 24.06, Glucose 119.5 H, Calcium 8.75, Total Bilirubin 0.51, AST 57.3, ALT 35.6, Alkaline Phosphatase 84.0, Total Protein 6.66, Albumin 3.43 L, Globulin 3.23, Albumin/Globulin Ratio 1.06 06/04/20 05:36: PT 10.1, INR 1.03 06/02/20 04:20: Miscellaneous Test Sent to [facility] 06/02/20 04:20: C-Reactive Prot, Quant 49 H 06/02/20 04:10: Lactate Dehydrogenase 299 H ASSESSMENT: Please see below. 1. Bilateral pneumonia 2. COVID 19 3. Acute respiratory failure, improved. PLAN: 1. Continue IV Remdesivir 2. Repeat ABG today on 3 liters 3. Continue IV antibiotics. Plan and coordination of the patient's care discussed in the presence of Vp Purchasing and nurse. SCRIBED BY: Edilson GOMEZ scribed while in presence of service performed by Dr. Alves/Luz Maria Solis APRN on 06/04/20 ([id number])
--- NOTE | 2020-06-04 09:15 | HP ---
DATE OF SERVICE: 06/01/20 HISTORY OF PRESENT ILLNESS: This is an 84-year-old white male, who presented to the emergency room with increasing shortness of breath. He recently tested positive for Covid. Saturation was 88% at home. PAST MEDICAL HISTORY: Dyslipidemia Degenerative disk disease of the spine Increased history of elevated PSA, sees Dr. Santos Seth Chronic kidney disease, Stage 2 Shoulder arthritis Left knee arthritis - use to see Dr. Holden History of gout PAST SURGICAL HISTORY: History of prostate biopsy times three by Dr. Lock back in 2005 History of back surgery unsure what year History of colonoscopy 02/20 REVIEW OF SYSTEMS: CONSTITUTIONAL: Weakness. No night sweats. No fatigue, malaise, lethargy. No fever or chills. HEENT: Eyes: No visual changes. No eye pain. No eye discharge. ENT: No runny nose. No epistaxis. No sinus pain. No sore throat. No odynophagia. No ear pain. No congestion. RESPIRATORY: Positive for cough and shortness of breath. No hemoptysis. CARDIOVASCULAR: No angina symptoms. No CHF symptoms. No atypical chest pain for CAD. No palpitations. No PND. No orthopnea. GASTROINTESTINAL: No abdominal pain. No nausea or vomiting. No diarrhea or constipation. No hematemesis. No hematochezia. GENITOURINARY: No urgency. No frequency. No dysuria. No hematuria. No obstructive symptoms. No discharge. No pain. No significant abnormal bleeding. MUSCULOSKELETAL: No musculoskeletal pain. No joint swelling. No arthritis. NEUROLOGICAL: No headache. No neck pain. No syncope. No seizures. No dizziness. PSYCHIATRIC: Not anxious. No depression. No suicidal thoughts. No homicidal thoughts. SKIN: No rash. No lesions. No wounds. ENDOCRINE: No unexplained weight loss. No weight gain. HEMATOLOGIC/LYMPHATIC: No anemia. No purpura. No petechiae. No prolonged or excessive bleeding. No palpable lymph nodes. PERSONAL/FAMILY/SOCIAL HISTORY: He is . He does have a fan balancer who stays with him. No alcohol or ilicit drug use. Nonsmoker. MEDICATIONS: Indomethacin 50 mg p.o. once p.r.n. Finasteride 5 mg p.o. daily Diphenhydramine-Acetaminophen 25-500 mg tablet one each p.o. daily ALLERGIES: NKDA PHYSICAL EXAMINATION: GENERAL: The patient is alert and oriented. VITAL SIGNS: Temperature 99.3, heart rate 80, respirations 20, BP 124/60, pulse ox 90% on 2L. HEENT: Head normocephalic, atraumatic. Eyes: Extraocular muscles are intact. Pupils are equal, round and reactive to light and accommodation. Ears: No lesions. Nose appeared normal. Throat: No exudate or erythema. NECK: Supple. No JVD, no carotid bruit. No lymphadenopathy or thyromegaly. LUNGS: Diminished breath sounds bilaterally. Clear to auscultation. Percussion note normal. Chest symmetrical. HEART: S1, S2, no S3. No murmur. No cyanosis or clubbing. No ascites. Pulses: Dorsalis pedis and posterior tibial pulses +1 to +2 bilaterally. ABDOMEN: Soft. Nontender. Bowel sounds active. No CVA tenderness. No mass felt. EXTREMITIES: No edema. Full range of motion of all extremities, equal. NEUROLOGIC: No focal deficit. Cranial nerves II through XII are grossly intact. No headache, no double vision or headache. SKIN: Not dry. Intact. Turgor - normal. LYMPHATIC: No palpable lymph nodes/no lymphedema. MUSCULOSKELETAL: Normal joints with no swelling. Muscle tone is normal. LAB/IMAGING/ABG'S: ABGs on room air 7.51, pc02 35, p02 50, base excess 4.9, bicarb 27.9, TC02 29, 02 sat 88. Chest x-ray shows bilateral ground glass opacities, suspected, compatible with the patient's history of Covid-19. Sodium 131, potassium 3.6, BUN 18, creatinine 0.95, glucose 139, GFR 76, magnesium 2.26, calcium 8.11, AST 58, ALT 26, total protein 6.9, procalcitonin less than 0.05, INR 0.98, lactic acid 1.25, white count 3.9, hemoglobin 14.4, hematocrit 41.7, platelets 112. ASSESSMENT: 1. BILATERAL PNEUMONIA DUE TO COVID-19. 2. ACUTE RESPIRATORY FAILURE. 3. SHORTNESS OF BREATH. 4. DEHYDRATION. 5. HYPONATREMIA. PLAN: 1. We will admit to the Covid unit. 2. The patient is to be in isolation. 3. CBC, CMP daily. 4. Continue home medications. 5. Start Remdesivir per guidelines. 6. Start Rocephin 1 gm IV daily. 7. Doxycycline 100 mg IV q.12. 8. Albuterol inhaler two puffs t.i.d. scheduled. 9. Symbicort inhaler two puffs b.i.d. ZOHAIB. 10. Decadron 6 mg IM daily. 11. Vitamin D 5000 daily. 12. Zinc 220 daily. 13. Pepcid 20 mg p.o. b.i.d. 14. Oxygen at 1 to 2L as needed. 15. Repeat ABGs in two hours. 16. Will follow closely. TIME SPENT: More than 70 minutes. MTDD
[2020-06-04 09:37] LABS: ABG PH 7.49 (7.35-7.45)
[2020-06-04 09:39] LABS: ABG BASE EXCESS -1.2 (-2.0-2.0)
[2020-06-04 09:40] LABS: ABG HCO3 22.1 (22.0-26.0)
[2020-06-04 09:41] LABS: ABG OXYGEN SATURATION 88.8 % (95-100)
--- NOTE | 2020-06-04 10:27 | PN ---
DATE OF SERVICE: 06/03/2020 SUBJECTIVE: The patient was seen and examined with the Nurse Practitioner. The patient's condition is improving. His oxygen saturation is more than 94% on room air. Breathing better and coughing much less. COVID 19 pneumonia seems to be responding to invasive medical management. TIME SPENT: More than 30 minutes. Plan and coordination of the patient's care discussed in the presence of nurse. XAVIER
[2020-06-04] MEDS: DECADRON IVP SCH (11:00)
[2020-06-04 12:08] LABS: ABG PH 7.51 (7.35-7.45)
[2020-06-04 12:09] LABS: ABG BASE EXCESS 0.1 (-2.0-2.0); ABG HCO3 23.1 (22.0-26.0); ABG OXYGEN SATURATION 92.7 % (95-100)
[2020-06-04] MEDS: PRAVACHOL PO SCH (21:45)
[2020-06-04] MEDS: TYLENOL PO SCH (21:45)
[2020-06-04] MEDS: BENADRYL PO SCH (21:45)
[2020-06-04] MEDS: ROCEPHIN 1 GM/50 ML D5W 1 GM/50 ML BAG IV SCH (21:46)
[2020-06-05] MEDS: VENTOLIN HFA (PER PUFF-WITH SPACER) IH SCH ×4 (04:50→23:15)
[2020-06-05] MEDS: ATROVENT HFA INHALER (PER PUFF-WITH SPACER) IH SCH ×4 (04:50→23:15)
[2020-06-05 05:26] LABS: BASOPHILS % (AUTO) 0.2 % (0.0-3.0); HEMATOCRIT 39.9 % (42.0-52.0); HEMOGLOBIN 13.8 g/dl (14.0-18.0); IMMATURE GRANULOCYTE % (AUTO) 0.5 % (0.0-5.0); LYMPHOCYTES # (AUTO) 0.7 K/uL (0.60-3.4); LYMPHOCYTES % (AUTO) 12.4 (10.0-50.0); MEAN CORPUSCULAR HEMOGLOBIN 30.6 pg (27.0-31.0); MEAN CORPUSCULAR HGB CONC 34.6 (31.8-35.4); MEAN CORPUSCULAR VOLUME 88.5 fl (80.0-94.0); MONOCYTES # (AUTO) 0.7 K/uL (0.4-2.0); MONOCYTES % (AUTO) 12.4 (0-10); NEUTROPHILS # (AUTO) 4.3 K/ul (2.0-6.9); NEUTROPHILS % (AUTO) 74.5 % (42.2-75.2); PLATELET COUNT 207 10^3/uL (140-440); RDW COEFFICIENT OF VARIATION 12.3 % (11.6-14.8); RED BLOOD COUNT 4.51 10^6/ul (4.70-6.10); WHITE BLOOD COUNT 5.81 K/ul (4.2-10.2)
[2020-06-05 05:38] LABS: PROTHROMBIN TIME 10.3 SEC (9.3-11.0)
[2020-06-05 05:42] LABS: ALANINE AMINOTRANSFERASE 58.6 U/L (0-50); ALBUMIN 3.29 g/dL (3.5-5.0); ALKALINE PHOSPHATASE 80.7 U/L (56-119); ASPARTATE AMINO TRANSFERASE 75.6 U/L (17-59); BILIRUBIN,TOTAL 0.57 mg/dL (0.2-1.3); CALCIUM 8.57 mg/dL (8.4-10.2); CARBON DIOXIDE 28.2 mmol/L (22-30.0); CREATININE 0.82 mg/dL (0.60-1.10); GLUCOSE 115.7 mg/dL (74-106); POTASSIUM 3.86 mmol/L (3.5-5.1); SODIUM 136.3 mmol/L (134.5-145); TOTAL PROTEIN 6.34 g/dL (6.3-8.2)
[2020-06-05] MEDS: PEPCID PO SCH ×2 (05:52→17:58)
[2020-06-05 07:35] LABS: ABG BASE EXCESS 1.7 (-2.0-2.0); ABG HCO3 24.7 (22.0-26.0); ABG OXYGEN SATURATION 93.9 % (95-100); ABG PH 7.51 (7.35-7.45); ABG TCO2 25.7 (22.0-28.0)
[2020-06-05] MEDS: VITAMIN D PO SCH (08:35)
[2020-06-05] MEDS: ZINC-220 PO SCH (08:35)
[2020-06-05] MEDS: PROSCAR PO SCH (08:36)
[2020-06-05] MEDS: LOVENOX SUBCUT SCH (08:36)
[2020-06-05] MEDS: DOXYCYCLINE HYCLATE PO SCH ×2 (08:36→21:52)
[2020-06-05] MEDS: SYMBICORT 160-4.5 MCG INHALER IH SCH ×2 (08:42→22:02)
[2020-06-05] MEDS: REMDESIVIR 100 MG in SODIUM CHLORIDE 230 ML IV SCH (12:13)
[2020-06-05] MEDS: DECADRON IVP SCH (13:53)
[2020-06-05] MEDS: BENADRYL PO SCH (21:52)
[2020-06-05] MEDS: ROCEPHIN 1 GM/50 ML D5W 1 GM/50 ML BAG IV SCH (21:53)
[2020-06-05] MEDS: TYLENOL PO SCH (21:53)
[2020-06-05] MEDS: PRAVACHOL PO SCH (21:53)
[2020-06-06 04:35] LABS: C-REACTIVE PROTEIN 15 mg/L (0-10)
[2020-06-06] MEDS: ATROVENT HFA INHALER (PER PUFF-WITH SPACER) IH SCH ×4 (04:50→23:10)
[2020-06-06] MEDS: VENTOLIN HFA (PER PUFF-WITH SPACER) IH SCH ×4 (04:50→23:10)
[2020-06-06] MEDS: PEPCID PO SCH ×2 (05:45→17:31)
[2020-06-06 06:11] LABS: BASOPHILS % (AUTO) 0.2 % (0.0-3.0); HEMATOCRIT 42.6 % (42.0-52.0); IMMATURE GRANULOCYTE # (AUTO) 0.1 (0.0-1.0); IMMATURE GRANULOCYTE % (AUTO) 0.8 % (0.0-5.0); LYMPHOCYTES # (AUTO) 0.7 K/uL (0.60-3.4); LYMPHOCYTES % (AUTO) 11.2 (10.0-50.0); MEAN CORPUSCULAR HEMOGLOBIN 30.8 pg (27.0-31.0); MEAN CORPUSCULAR HGB CONC 35.2 (31.8-35.4); MEAN CORPUSCULAR VOLUME 87.5 fl (80.0-94.0); MONOCYTES # (AUTO) 0.8 K/uL (0.4-2.0); MONOCYTES % (AUTO) 12.1 (0-10); NEUTROPHILS % (AUTO) 75.7 % (42.2-75.2); PLATELET COUNT 216 10^3/uL (140-440); RDW COEFFICIENT OF VARIATION 12.1 % (11.6-14.8); RED BLOOD COUNT 4.87 10^6/ul (4.70-6.10); WHITE BLOOD COUNT 6.63 K/ul (4.2-10.2)
[2020-06-06 06:31] LABS: PROTHROMBIN TIME 10.4 SEC (9.3-11.0)
[2020-06-06 06:32] LABS: ALANINE AMINOTRANSFERASE 89.2 U/L (0-50); ALBUMIN 3.53 g/dL (3.5-5.0); BILIRUBIN,TOTAL 0.79 mg/dL (0.2-1.3); BLOOD UREA NITROGEN 21.1 mg/dL (9-20); CALCIUM 8.75 mg/dL (8.4-10.2); CARBON DIOXIDE 23.8 mmol/L (22-30.0); CHLORIDE 102.4 mmol/L (98-107); CREATININE 0.81 mg/dL (0.60-1.10); GLUCOSE 117.4 mg/dL (74-106); POTASSIUM 3.68 mmol/L (3.5-5.1); SODIUM 134.5 mmol/L (134.5-145); TOTAL PROTEIN 6.68 g/dL (6.3-8.2)
--- NOTE | 2020-06-06 08:52 | PCM.PROG ---
Attending Provider: ATTENDING PROVIDER: Dr. DEDE ALVES This patient is seen with Luz Maria Solis, Nurse Practitioner. DATE OF SERVICE: 06/06/20 SUBJECTIVE: This 84 year old /WHITE M was hospitalized 06/01/20. The resting comfortably. Still eating well. Still requiring 5 liters. The patient would not tolerate the venturi mask. His oxygen saturation is 82-92%. REVIEW OF SYSTEMS: CONSTITUTIONAL: No night sweats. No fatigue, malaise, lethargy. No fever or chills. HEENT: Eyes: No visual changes. No eye pain. No eye discharge. ENT: No runny nose. No epistaxis. No sinus pain. No odynophagia. No congestion. RESPIRATORY: Cough, no congestion. No hemoptysis. Shortness of breath. CARDIOVASCULAR: No angina symptoms. No CHF symptoms. No atypical chest pain for CAD. No palpitations. No orthopnea.. GASTROINTESTINAL: No abdominal pain. No nausea or vomiting. No diarrhea or constipation. No hematemesis. No hematochezia. GENITOURINARY: No urgency. No frequency. No dysuria. No hematuria. No obstructive symptoms. No discharge. No pain. No significant abnormal bleeding. MUSCULOSKELETAL: No musculoskeletal pain; no joint swelling. NEUROLOGICAL: Awake, alert, oriented to time, place and person. No headache. No neck pain. No syncope. No seizures. No dizziness. PSYCHIATRIC: Not anxious. No depression. No suicidal thoughts. No homicidal thoughts. SKIN: No rash. No lesions. No wounds. ENDOCRINE: No unexplained weight loss. No weight gain. HEMATOLOGIC/LYMPHATIC: No anemia. No purpura. No petechiae. No prolonged or excessive bleeding. No palpable lymph nodes. PHYSICAL EXAMINATION: GENERAL: The patient is awake, alert and oriented, lying in bed in no distress. VITAL SIGNS: Temperature 97.6 F, Pulse 68, Respiratory Rate 20, BP 147/78, Pu lse Ox 92% HEENT: Head normocephalic, atraumatic. Eyes: Extraocular muscles are intact. Pupils are equal, round and reactive to light and accommodation. Ears: No lesions. Nose appeared normal. Throat: No exudate or erythema. NECK: Supple. No JVD, no carotid bruit. No lymphadenopathy or thyromegaly. LUNGS: Diminished breath sounds. Clear to auscultation. Percussion note normal. Chest symmetrical. HEART: S1, S2, no S3. No murmurs. No cyanosis or clubbing. No ascites. Pulses: Dorsalis pedis and posterior tibial pulses +1 to +2 both sides. ABDOMEN: Soft. Non-tender. Bowel sounds active. No CVA tenderness. No mass felt. EXTREMITIES: No edema. Full range of motion of all extremities, equal. NEUROLOGIC: No focal deficit. Cranial nerves II through XII are grossly intact. No headache, no double vision or headache. SKIN: Not dry. Intact. Turgor-normal. LYMPHATIC: No palpable lymph nodes/no lymphedema. MUSCULOSKELETAL: Normal joints with no swelling. Muscle tone is normal. LAB REVIEW: 06/06/20 06:00 06/06/20 06:00 06/06/20 06:00: WBC 6.63, RBC 4.87, Hgb 15.0, Hct 42.6, MCV 87.5, MCH 30.8, MCHC 35.2, RDW Coeff of Анна 12.1, Plt Count 216, Immature Gran % (Auto) 0.8, Neut % (Auto) 75.7 H, Lymph % (Auto) 11.2, [place] % (Auto) 12.1 H, Eos % (Auto) 0.0, Baso % (Auto) 0.2, Neut # (Auto) 5.0, Lymph # (Auto) 0.7, [place] # (Auto) 0.8, Eos # (Auto) 0.0, Baso # (Auto) 0.0, Immature Gran # (Auto) 0.1 06/06/20 06:00: Sodium 134.5, Potassium 3.68, Chloride 102.4, Carbon Dioxide 23.8, Anion Gap 11.98, BUN 21.1 H, Creatinine 0.81, Estimated GFR (MDRD) 91.00, BUN/Creatinine Ratio 26.04, Glucose 117.4 H, Calcium 8.75, Total Bilirubin 0.79, AST 88.0 H, ALT 89.2 H D, Alkaline Phosphatase 96.0, Total Protein 6.68, Albumin 3.53, Globulin 3.15, Albumin/Globulin Ratio 1.12 06/06/20 06:00: PT 10.4, INR 1.06 06/05/20 07:35: Lactate Dehydrogenase 305 H, C-Reactive Prot, Quant 15 H ASSESSMENT: Please see below. 1. Bilateral pneumonia 2. COVID 19 3. Acute respiratory failure PLAN: 1. Repeat ABGs on 4 liters 2. Repeat chest x-ray 3. Continue IV antibiotics Plan and coordination of the patient's care discussed in the presence of Meal Attendant and nurse. SCRIBED BY: Princess GOMEZist scribed while in presence of service performed by Dr. Alves/Luz Maria Solis APRN on 06/06/20 ([id number])
[2020-06-06 09:14] LABS: ABG PH 7.51 (7.35-7.45)
[2020-06-06 09:15] LABS: ABG BASE EXCESS 0.9 (-2.0-2.0); ABG HCO3 23.9 (22.0-26.0)
[2020-06-06 09:16] LABS: ABG OXYGEN SATURATION 93.1 % (95-100); ABG TCO2 24.8 (22.0-28.0)
[2020-06-06] MEDS: VITAMIN D PO SCH (09:28)
[2020-06-06] MEDS: COZAAR PO SCH (09:29)
[2020-06-06] MEDS: DOXYCYCLINE HYCLATE PO SCH ×2 (09:29→20:38)
[2020-06-06] MEDS: PROSCAR PO SCH (09:29)
[2020-06-06] MEDS: ZINC-220 PO SCH (09:29)
[2020-06-06] MEDS: LOVENOX SUBCUT SCH (09:30)
[2020-06-06] MEDS: SYMBICORT 160-4.5 MCG INHALER IH SCH ×2 (09:30→20:39)
--- NOTE | 2020-06-06 09:34 | DI ---
EXAM: Chest one view HISTORY: Cough COMPARISON: 06/01/2020 TECHNIQUE: Single view of the chest was performed FINDINGS: Patchy bilateral infiltrates, mildly increased. There is no pleural effusion or pneumotho rax. The heart is normal in size. The mediastinal contour is normal. There are no acute abnormalit ies of the bones. IMPRESSION: Multifocal bilateral pneumonia, increased
[2020-06-06] MEDS: REMDESIVIR 100 MG in SODIUM CHLORIDE 230 ML IV SCH (11:59)
[2020-06-06] MEDS: DECADRON IVP SCH (13:28)
--- NOTE | 2020-06-06 14:25 | PN ---
DATE OF SERVICE: 06/05/2020 SUBJECTIVE: 84 year old white male hospitalized with COVID pneumonia. Condition is steady and he is feeling a lot better. Last night his saturation dropped and he was venti mask. This morning the patient doesn't have any type of symptoms. REVIEW OF SYSTEMS: CONSTITUTIONAL: No night sweats. No fatigue, malaise, lethargy. No fever or chills. HEENT: Eyes: No visual changes. No eye pain. No eye discharge. ENT: No runny nose. No epistaxis. No sinus pain. No sore throat. No odynophagia. No congestion. RESPIRATORY: No cough, no congestion. No hemoptysis. No shortness of breath. CARDIOVASCULAR: No angina symptoms. No CHF symptoms. No atypical chest pain for CAD. No palpitations. No PND. No orthopnea. GASTROINTESTINAL: No abdominal pain. No nausea or vomiting. No diarrhea or constipation. No hematemesis. No hematochezia. GENITOURINARY: No urgency. No frequency. No dysuria. No hematuria. No obstructive symptoms. No discharge. No pain. No significant abnormal bleeding. MUSCULOSKELETAL: No musculoskeletal pain; no joint swelling. NEUROLOGICAL: No headache. No neck pain. No syncope. No seizures. No dizziness. PSYCHIATRIC: Not anxious. No depression. No suicidal thoughts. No homicidal thoughts. SKIN: No rash. No lesions. No wounds. ENDOCRINE: No unexplained weight loss. No weight gain. HEMATOLOGIC/LYMPHATIC: No anemia. No purpura. No petechiae. No prolonged or excessive bleeding. No palpable lymph nodes. PHYSICAL EXAMINATION: VITAL SIGNS: Temperature 97.6, pulse 63, respiratory rate 22, blood pressure 160/78 and pulse ox 92% on 4 liters. HEENT: Head normocephalic, atraumatic. Eyes: Extraocular muscles are intact. Pupils are equal, round and reactive to light and accommodation. Ears: No lesions. Nose appeared normal. Throat: No exudate or erythema. NECK: Supple. No JVD, no carotid bruit. No lymphadenopathy or thyromegaly. LUNGS: Decreased breath sounds with bilateral basal crepitation. Percussion note normal. Chest symmetrical. HEART: S1, S2, no S3. No murmurs. No cyanosis or clubbing. No ascites. Pulses: Dorsalis pedis and posterior tibial pulses +1 to +2 bilaterally. ABDOMEN: Soft. Nontender. Bowel sounds active. No CVA tenderness. No mass felt. EXTREMITIES: No edema. Full range of motion of all extremities, equal. NEUROLOGIC: No focal deficit. Cranial nerves II through XII are grossly intact. No headache, no double vision or headache. SKIN: Not dry. Intact. Turgor - normal. LYMPHATIC: No palpable lymph nodes/no lymphedema. MUSCULOSKELETAL: Normal joints with no swelling. Muscle tone is normal. LABS: hgb 13.8, hct 40, WBC 5,800 with normal differential,creatinine 0.8, BUN 20, potassium 3.8, Estimated GFR 90cc per minute. ASSESSMENT: 1. COVID 19 pneumonia seems to be stable but some improvement from admission. The patient is more or less stable now with oxygen saturation 92-94% with 4 liters. PLAN: 1. Advised to continue to give patient IV antibiotics, steroids, Symbicort, Finasteride, Remdesivir course. TIME SPENT: More than 30 minutes. Plan and coordination of the patient's care discussed in the presence of nurse. XAVIER
[2020-06-06] MEDS: TYLENOL PO SCH (20:38)
[2020-06-06] MEDS: ROCEPHIN 1 GM/50 ML D5W 1 GM/50 ML BAG IV SCH (20:38)
[2020-06-06] MEDS: PRAVACHOL PO SCH (20:38)
[2020-06-06] MEDS: BENADRYL PO SCH (20:38)
[2020-06-07] MEDS: VENTOLIN HFA (PER PUFF-WITH SPACER) IH SCH ×4 (04:50→23:20)
[2020-06-07] MEDS: ATROVENT HFA INHALER (PER PUFF-WITH SPACER) IH SCH ×4 (04:50→23:20)
[2020-06-07] MEDS: PEPCID PO SCH ×2 (05:36→17:22)
[2020-06-07 06:29] LABS: BASOPHILS % (AUTO) 0.2 % (0.0-3.0); EOSINOPHILS % (AUTO) 0.2 % (0.0-7.0); HEMATOCRIT 42.2 % (42.0-52.0); HEMOGLOBIN 14.7 g/dl (14.0-18.0); IMMATURE GRANULOCYTE # (AUTO) 0.1 (0.0-1.0); IMMATURE GRANULOCYTE % (AUTO) 1.5 % (0.0-5.0); LYMPHOCYTES # (AUTO) 0.5 K/uL (0.60-3.4); LYMPHOCYTES % (AUTO) 7.9 (10.0-50.0); MEAN CORPUSCULAR HEMOGLOBIN 30.7 pg (27.0-31.0); MEAN CORPUSCULAR HGB CONC 34.8 (31.8-35.4); MEAN CORPUSCULAR VOLUME 88.1 fl (80.0-94.0); MONOCYTES # (AUTO) 0.6 K/uL (0.4-2.0); MONOCYTES % (AUTO) 10.6 (0-10); NEUTROPHILS # (AUTO) 4.8 K/ul (2.0-6.9); NEUTROPHILS % (AUTO) 79.6 % (42.2-75.2); PLATELET COUNT 253 10^3/uL (140-440); RDW COEFFICIENT OF VARIATION 12.3 % (11.6-14.8); RED BLOOD COUNT 4.79 10^6/ul (4.70-6.10); WHITE BLOOD COUNT 6.06 K/ul (4.2-10.2)
[2020-06-07 06:43] LABS: ALANINE AMINOTRANSFERASE 67.1 U/L (0-50); ALBUMIN 3.39 g/dL (3.5-5.0); ALKALINE PHOSPHATASE 86.2 U/L (56-119); BILIRUBIN,TOTAL 0.79 mg/dL (0.2-1.3); BLOOD UREA NITROGEN 24.4 mg/dL (9-20); CALCIUM 8.55 mg/dL (8.4-10.2); CARBON DIOXIDE 24.2 mmol/L (22-30.0); CHLORIDE 102.4 mmol/L (98-107); CREATININE 0.89 mg/dL (0.60-1.10); GLUCOSE 133.5 mg/dL (74-106); POTASSIUM 4.29 mmol/L (3.5-5.1); SODIUM 133.8 mmol/L (134.5-145); TOTAL PROTEIN 6.52 g/dL (6.3-8.2)
--- NOTE | 2020-06-07 08:54 | PCM.PROG ---
Attending Provider: ATTENDING PROVIDER: Dr. DEDE ALVES DATE OF SERVICE: 06/07/20 SUBJECTIVE: This 84 year old /WHITE M was hospitalized 06/01/20 with COVD 19 pneumonia. The patient is being treated with Remdesivir which will be over today, steroids, inhaler Symbicort, Doxycycline and Rocephin. The patient on chest x-ray showed increased pneumonia by clinically stable. He has no distress. REVIEW OF SYSTEMS: CONSTITUTIONAL: No night sweats. No fatigue, malaise, lethargy. No fever or chills. HEENT: Eyes: No visual changes. No eye pain. No eye discharge. ENT: No runny nose. No epistaxis. No sinus pain. No odynophagia. No congestion. RESPIRATORY: No cough, no congestion. No hemoptysis. No shortness of breath. CARDIOVASCULAR: No angina symptoms. No CHF symptoms. No atypical chest pain for CAD. No palpitations. No orthopnea.. GASTROINTESTINAL: No abdominal pain. No nausea or vomiting. No diarrhea or constipation. No hematemesis. No hematochezia. GENITOURINARY: No urgency. No frequency. No dysuria. No hematuria. No obstructive symptoms. No discharge. No pain. No significant abnormal bleeding. MUSCULOSKELETAL: No musculoskeletal pain; no joint swelling. NEUROLOGICAL: Awake, alert, oriented to time, place and person. No headache. No neck pain. No syncope. No seizures. No dizziness. PSYCHIATRIC: Not anxious. No depression. No suicidal thoughts. No homicidal thoughts. SKIN: No rash. No lesions. No wounds. ENDOCRINE: No unexplained weight loss. No weight gain. HEMATOLOGIC/LYMPHATIC: No anemia. No purpura. No petechiae. No prolonged or excessive bleeding. No palpable lymph nodes. PHYSICAL EXAMINATION: GENERAL: The patient is awake, alert and oriented, lying in bed in no distress. VITAL SIGNS: Temperature 97.9 F, Pulse 80, Respiratory Rate 16, BP 135/72, Pulse Ox 93% HEENT: Head normocephalic, atraumatic. Eyes: Extraocular muscles are intact. Pupils are equal, round and reactive to light and accommodation. Ears: No lesions. Nose appeared normal. Throat: No exudate or erythema. NECK: Supple. No JVD, no carotid bruit. No lymphadenopathy or thyromegaly. LUNGS: Decreased breath sounds. Clear to auscultation. Percussion note normal. Chest symmetrical. HEART: S1, S2, no S3. No murmurs. No cyanosis or clubbing. No ascites. Pulses: Dorsalis pedis and posterior tibial pulses +1 to +2 both sides. ABDOMEN: Soft. Non-tender. Bowel sounds active. No CVA tenderness. No mass felt. EXTREMITIES: No edema. Full range of motion of all extremities, equal. NEUROLOGIC: No focal deficit. Cranial nerves II through XII are grossly intact. No headache, no double vision or headache. SKIN: Warm and dry. Intact. Turgor-normal. LYMPHATIC: No palpable lymph nodes/no lymphedema. MUSCULOSKELETAL: Normal joints with no swelling. Muscle tone is normal. LAB REVIEW: 06/07/20 06:20 06/07/20 06:20 06/07/20 06:20: Sodium 133.8 L, Potassium 4.29, Chloride 102.4, Carbon Dioxide 24.2, Anion Gap 11.49, BUN 24.4 H, Creatinine 0.89, Estimated GFR (MDRD) 81.00, BUN/Creatinine Ratio 27.41, Glucose 133.5 H, Calcium 8.55, Total Bilirubin 0.79, AST 41.0 D, ALT 67.1 H, Alkaline Phosphatase 86.2, Total Protein 6.52, Albumin 3.39 L, Globulin 3.13, Albumin/Globulin Ratio 1.08 06/07/20 06:20: WBC 6.06, RBC 4.79, Hgb 14.7, Hct 42.2, MCV 88.1, MCH 30.7, MCHC 34.8, RDW Coeff of Анна 12.3, Plt Count 253, Immature Gran % (Auto) 1.5, Neut % (Auto) 79.6 H, Lymph % (Auto) 7.9 L, Logan % (Auto) 10.6 H, Eos % (Auto) 0.2, Baso % (Auto) 0.2, Neut # (Auto) 4.8, Lymph # (Auto) 0.5 L, Logan # (Auto) 0.6, Eos # (Auto) 0.0, Baso # (Auto) 0.0, Immature Gran # (Auto) 0.1 06/06/20 09:00: Puncture Site Rr, O2 Saturation 93.1 L, ABG pH 7.51 H*, ABG pCO2 30.0 L, ABG pO2 60.0 L, ABG HCO3 23.9, ABG Total CO2 24.8, ABG Base Excess 0.9, Evan Test +, O2 Delivery Device Nc, Oxygen Liter Flow 4.00 ASSESSMENT: Please see below. 1. COVID pneumonia, stable PLAN: 1. Continue antibiotics, same management 2. The patient is losing patience and wants to go home. Oxygen saturation is fluctuating between 89-94% with 4 liters of oxygen which has been stable. Kidney function are normal. CBC with differential normal Plan and coordination of the patient's care discussed in the presence of [employer] and nurse. CONDITION: Stable. SCRIBED BY: Edilson GOMEZ scribed while in presence of service performed by Dr. DEDE ALVES on 06/07/20 ([id number])
[2020-06-07] MEDS: VITAMIN D PO SCH (09:40)
[2020-06-07] MEDS: PROSCAR PO SCH (09:41)
[2020-06-07] MEDS: ZINC-220 PO SCH (09:41)
[2020-06-07] MEDS: COZAAR PO SCH (09:41)
[2020-06-07] MEDS: DECADRON IVP SCH (09:42)
[2020-06-07] MEDS: DOXYCYCLINE HYCLATE PO SCH ×2 (09:42→20:23)
[2020-06-07] MEDS: LOVENOX SUBCUT SCH (09:42)
--- NOTE | 2020-06-07 11:18 | PN ---
DATE OF SERVICE: 06/04/20 SUBJECTIVE: The patient was seen and examined with the nurse practitioner. The patient's condition is improving. The patient's saturation at times drops below 87% with 2 to 3L. Will put 4L. He is not in distress at all. He is not fighting for air. He doesn't need to have high flow oxygen. Will continue the same with antibiotics, steroids, nebs and Remdesivir. TIME SPENT: More than 30 minutes. Plan and coordination of the patient's care discussed in the presence of nurse. XAVIER
--- NOTE | 2020-06-07 11:36 | PN ---
DATE OF SERVICE: 06/06/20 SUBJECTIVE: The patient's condition has been stable. Chest x-ray shows deterioration of pneumonia but clinically he is stable and practically hasn't changed much. Appetite seems to be normal. He is not in any distress, 95% saturation with 4L. Continue the same antibiotics. TIME SPENT: More than 30 minutes. Plan and coordination of the patient's care discussed in the presence of nurse. XAVIER
[2020-06-07] MEDS: SYMBICORT 160-4.5 MCG INHALER IH SCH ×2 (14:32→20:23)
[2020-06-07] MEDS: ROCEPHIN 1 GM/50 ML D5W 1 GM/50 ML BAG IV SCH (20:22)
[2020-06-07] MEDS: BENADRYL PO SCH (20:22)
[2020-06-07] MEDS: PRAVACHOL PO SCH (20:23)
[2020-06-07] MEDS: TYLENOL PO SCH (20:23)
[2020-06-08] MEDS: VENTOLIN HFA (PER PUFF-WITH SPACER) IH SCH ×2 (04:30→11:17)
[2020-06-08] MEDS: ATROVENT HFA INHALER (PER PUFF-WITH SPACER) IH SCH ×2 (04:30→11:17)
[2020-06-08 05:34] VITALS: BP 130/73; TEMP 98.1
[2020-06-08] MEDS: PEPCID PO SCH (05:34)
[2020-06-08 05:38] LABS: BASOPHILS % (AUTO) 0.1 % (0.0-3.0); EOSINOPHILS # (AUTO) 0.1 K/ul (0.0-0.7); EOSINOPHILS % (AUTO) 0.8 % (0.0-7.0); HEMATOCRIT 43.2 % (42.0-52.0); HEMOGLOBIN 15.2 g/dl (14.0-18.0); IMMATURE GRANULOCYTE # (AUTO) 0.1 (0.0-1.0); IMMATURE GRANULOCYTE % (AUTO) 1.8 % (0.0-5.0); LYMPHOCYTES # (AUTO) 0.9 K/uL (0.60-3.4); LYMPHOCYTES % (AUTO) 12.1 (10.0-50.0); MEAN CORPUSCULAR HEMOGLOBIN 30.8 pg (27.0-31.0); MEAN CORPUSCULAR HGB CONC 35.2 (31.8-35.4); MEAN CORPUSCULAR VOLUME 87.6 fl (80.0-94.0); MONOCYTES # (AUTO) 0.9 K/uL (0.4-2.0); MONOCYTES % (AUTO) 12.2 (0-10); NEUTROPHILS # (AUTO) 5.4 K/ul (2.0-6.9); PLATELET COUNT 305 10^3/uL (140-440); RDW COEFFICIENT OF VARIATION 12.3 % (11.6-14.8); RED BLOOD COUNT 4.93 10^6/ul (4.70-6.10); WHITE BLOOD COUNT 7.35 K/ul (4.2-10.2)
[2020-06-08 05:53] LABS: ALANINE AMINOTRANSFERASE 55.4 U/L (0-50); ALBUMIN 3.52 g/dL (3.5-5.0); ALKALINE PHOSPHATASE 86.2 U/L (56-119); ASPARTATE AMINO TRANSFERASE 32.2 U/L (17-59); BILIRUBIN,TOTAL 0.74 mg/dL (0.2-1.3); BLOOD UREA NITROGEN 22.4 mg/dL (9-20); CALCIUM 8.91 mg/dL (8.4-10.2); CARBON DIOXIDE 26.2 mmol/L (22-30.0); CHLORIDE 102.5 mmol/L (98-107); CREATININE 0.83 mg/dL (0.60-1.10); GLUCOSE 112.3 mg/dL (74-106); POTASSIUM 4.1 mmol/L (3.5-5.1); SODIUM 134.9 mmol/L (134.5-145); TOTAL PROTEIN 6.8 g/dL (6.3-8.2)
[2020-06-08] MEDS: VITAMIN D PO SCH (08:24)
[2020-06-08] MEDS: ZINC-220 PO SCH (08:24)
[2020-06-08] MEDS: PROSCAR PO SCH (08:24)
[2020-06-08] MEDS: DOXYCYCLINE HYCLATE PO SCH (08:25)
[2020-06-08] MEDS: LOVENOX SUBCUT SCH (08:25)
[2020-06-08] MEDS: COZAAR PO SCH (08:25)
[2020-06-08] MEDS: SYMBICORT 160-4.5 MCG INHALER IH SCH (08:27)
[2020-06-08 11:49] LABS: ABG BASE EXCESS -1.2 (-2.0-2.0); ABG HCO3 22.3 (22.0-26.0); ABG OXYGEN SATURATION 93.7 % (95-100); ABG PH 7.48 (7.35-7.45); ABG TCO2 23.2 (22.0-28.0)
--- NOTE | 2020-06-10 14:01 | DS ---
DATE OF SERVICE: 06/08/2020 FINAL DIAGNOSIS: 1. COVID pneumonia, bilateral 2. Chronic lung disease 3. BPH 4. Gouty arthritis DISCHARGE INSTRUCTIONS: Discharge home. Continue the home medications. Come back on followup on 06/14/2020 which should be changed to 06/21/2020. MEDICATIONS AT DISCHARGE: Finasteride Indomethacin PRN NEW PRESCRIPTIONS: Cefdinir 300mg PO BID for 5 days Prednisone 10mg daily for 5 days Oxygen 2 liters per cannula per minute Pepcid 20mg PO BID for 10 days. Vitamin D3 5000 units daily for 10 days DIET INSTRUCTIONS: As tolerated ACTIVITY: As tolerated LABS: Hgb 15.2, hct 43, WBC 7,000 normal differential, creatinin e0.8, BUN 22, potassium 4.1. HOSPITAL COURSE: 84 year old white male hospitalized with bilateral COVID pneumonia. The patient was treated in the hospital with Remdesivir 200mg first dose and after that 100 daily for 5 days. He was also given Dexamethasone 6mg IV daily. He was put on Doxycycline and Rocephin, Ramitadine with Zinc sulfate and Vitamin D 3 were started along with Pravachol. The patient's condition has improved and he feeling a lot better. He is up and about. Chest x-ray is lagging behind his clinical improvement. The patient at the time of discharge had oximetry reading of 90-91% on room air. he is going to be put on 2 liters of oxygen that is going to be fixed. He is instructed for 14 total quarantine after his admission day. The patient has oximetry at home so he is going to check his oximetry and at any time it fall below 90% with his 2 liters of oxygen he is to report to me or go to the emergency room. He is advised to rest and eat. CONDITION: Stable. TIME SPENT: More than 60 minutes. MTDD
--- NOTE | 2020-06-10 14:01 | PN ---
06/01/2020: Level 5 06/02/2020: Intermediate 06/03/2020: Intermediate 06/04/2020: Intermediate 06/05/2020: Intermediate 06/06/2020: Intermediate 06/07/2020: Intermediate 06/08/2020: D as in discharge MTDD
== END 2020-06-08 14:34 | disposition home or self-care (01) | DRG 193 ==
LOC: ED 18:11 → SCU 20:49 → EDSTATUS 06-03 10:19
PROVIDERS: ADMIT Internal Medicine; ATTEND Internal Medicine
DX: N40.0 Benign prostatic hyperplasia without lower urinary tract symptoms; E86.0 Dehydration; M10.9 Gout, unspecified; E87.1 Hypo-osmolality and hyponatremia; J96.00 Acute respiratory failure, unspecified whether with hypoxia or hypercapnia; J16.8 Pneumonia due to other specified infectious organisms